=== PATIENT | male | born 1930 | race Caucasian/White ===

== ENCOUNTER 2016-07-18 00:29 | Observation (INO) | payer MEDICARE, BC ==
[~2016-07-18 00:29] MED LIST: ADVIL200 MG; ALLOPURINOL100 MG; ALPRAZOLAM; ASPIR-LOW81 M1 PO; ASPIR-LOW81 MG PO; ATENOLOL25 M1 PO; ATROVENT30 ML; BAYER CHEWABLE81 M2 PO; BETAPACE80 M2 PO; CALCIUM + VITA1 EAC4 PO; CENTRUM SILVER1 TA; CLINDAMYCIN HC300 M2 PO; CLONAZEPAM0.5 M2 PO; CLOTRIMAZOLE30 ML TOP; COREG3.125 MG PO; CYCLOBENZAPRINE10 M1 PO; DELTASONE10 MG PO; DESOWEN TOP; DOXYCYCLINE HY100 M3 PO; DULCOLAX10 MG PR; DULCOLAX5 M1 PO; FLECAINIDE ACET50 M1 PO; HYDROCHLOROTH12.5 M1 PO; HYDROCHLOROTH12.5 M3 PO; KETOCONAZOLE15 GM TOP; LACTULOSE; LACTULOSE10 G/15 ML PO; LASIX20 M1 PO; MAPAP325 MG PO; MILK OF MAGNESIA PO; MIRALAX17 G2 PO; MITIGARE0.6 MG PO; MULTI VITAMIN1 EAC1 PO; MULTI VITAMIN1 EAC2 PO; NITROFURANTOIN100 M3 PO; OMEGA 31 CAP; PANTOPRAZOLE SO40 M3 PO; PERCOCET 5-3251 EACH PO; PHILLIPS CAPLETS; PREDNISONE10 M1 PO; PROVENTIL HFA6.7 G1 INH; ROXICODONE5 M2 PO; SENNA S TABLET1 EACH PO; SENOKOT-S TABL1 EACH PO; STOOL SOFTENER; TRAZODONE50 MG; TYLENOL325 M2 PO; TYLENOL650 MG; ULTRAM50 M1 PO; UROXATRAL10 MG; VITAMIN B12500 MCG PO; XARELTO15 M1 PO; [UNRECOGNIZED DRUG - OTHER] PO
[2016-07-18 01:10] LABS: BASO % 0.1 % (0-2); EOS % 0.9 % (0-7); EOSINOPHIL ABSOLUTE COUNT 0.1 tho/cmm (0.0-0.7); HCT-HEMATOCRIT 36.6 % (36.0-53.5); HGB-HEMOGLOBIN 11.9 gm/dl (13.5-17.0); IMMATURE GRANULOCYTES ABSOLUTE 0.03 tho/cmm (0-0.03); IMMATURE GRANULOCYTES PERCENT 0.4 % (0-0.3); LYMPH % 28.6 % (20-45); LYMPH ABSOLUTE COUNT 2.2 tho/cmm (0.8-4.5); MCH (MEAN CORPUSCULAR HGB) 31.6 pg (28.0-32.0); MCHC MEAN CORPUSCULAR HGB CONC 32.5 % (32.0-36.0); MCV (MEAN CELL VOLUME) 97.1 fl (82.0-96.0); MEAN PLATELET VOLUME 8.7 cmc (9.4-12.4); MONO % 10.6 % (0-12); MONOCYTE ABSOLUTE COUNT 0.8 tho/cmm (0.0-1.2); NEUTROPHIL ABSOLUTE COUNT 4.5 tho/cmm (1.6-8.0); NEUTROPHIL-AUTOMATED 4.5 tho/cmm (1.6-8.0); NEUTROPHILS % 59.4 % (40-80); PLATELET COUNT 317 tho/cmm (150-450); RED BLOOD COUNT 3.77 mil/cmm (4.40-5.70); RED CELL DISTRIBUTION WIDTH 12.9 % (12.4-16.4); WHITE BLOOD COUNT 7.5 tho/cmm (4.0-10.0)
[2016-07-18] MEDS ORDERED: OS-CAL 500+D31 EAC1 PO (01:12)
[2016-07-18] MEDS ORDERED: ZYLOPRIM100 M1 PO (01:12)
[2016-07-18] MEDS ORDERED: AMIODARONE HCL200 M1 PO (01:12)
[2016-07-18] MEDS ORDERED: DOK PLUS TABLE1 EAC1 PO (01:13)
[2016-07-18] MEDS ORDERED: LASIX20 M1 PO (01:14)
[2016-07-18] MEDS ORDERED: CLARITIN10 M6 PO (01:15)
[2016-07-18] MEDS ORDERED: IPRATROPIUM BRO30 M1 (01:15)
[2016-07-18] MEDS ORDERED: DISALCID500 M1 PO (01:16)
[2016-07-18] MEDS ORDERED: ASMANEX HFA13 GM INH (01:16)
[2016-07-18] MEDS ORDERED: SPIRIVA18 MC1 INH (01:17)
[2016-07-18 01:24] LABS: ANION GAP 14 mmol/L (0-20); BLOOD UREA NITROGEN 22 mg/dl (6-24); CALCIUM 8.9 mg/dl (8.5-10.5); CARBON DIOXIDE-VENOUS 24 mmol/L (22-32); CHLORIDE 108 mmol/l (96-110); CREATININE 1.27 mg/dl (0.60-1.30); GLUCOSE 103 mg/dL (70-110); MAGNESIUM 2.1 mg/dl (1.8-2.6); SODIUM 142 mmol/L (135-145); eGFR VALUE FOR BLACK 59 mL/Min
[2016-07-18 01:30] LABS: POTASSIUM 4.3 mmol/L (3.7-5.1)
[2016-07-18] MEDS ORDERED: PREDNISONE10 M1 PO (09:47)
[2016-07-18] MEDS ORDERED: VIBRAMYCIN100 M1 PO ×2 (09:48→12:08)
[2016-07-18] MEDS ORDERED: TENORMIN25 M1 PO (09:51)
[2016-07-18] MEDS ORDERED: CARDIZEM CD120 M1 PO (09:52)
[2016-07-18] MEDS ORDERED: KETOCONAZOLE15 GM TP (10:52)
[2016-07-18] MEDS ORDERED: SIMETHICONE80 M3 PO (10:54)
[2016-07-18] MEDS ORDERED: ISOPTO TEARS15 M1 OP (11:02)
[2016-07-18] MEDS ORDERED: ASPIRIN81 M1 PO (12:03)
[2016-07-18] MEDS ORDERED: COLACE CLEAR50 MG PO (12:06)
== END 2016-07-18 13:30 ==
LOC: EDMED 00:29 → EMR2 02:41 → PCUA 03:05
PROVIDERS: Emergency Medicine; ADMIT Internal Medicine Cardiovascular Disease
DX: R07.89 Other chest pain (principal); I44.7 Left bundle-branch block, unspecified; I10 Essential (primary) hypertension; E78.5 Hyperlipidemia, unspecified; I34.0 Nonrheumatic mitral (valve) insufficiency; Z79.01 Long term (current) use of anticoagulants; Z79.899 Other long term (current) drug therapy; Z88.0 Allergy status to penicillin; Z88.2 Allergy status to sulfonamides; Z88.8 Allergy status to other drugs, medicaments and biological substances; Z91.048 Other nonmedicinal substance allergy status; Z87.891 Personal history of nicotine dependence; Z98.49 Cataract extraction status, unspecified eye; Z98.890 Other specified postprocedural states
CPT/HCPCS: C8924; G0378